=== PATIENT | male | born 1995 | race Caucasian/White ===

== ENCOUNTER 2017-06-19 20:21 | Emergency (ER) | payer SELFPAY ==
--- NOTE | 2017-06-19 20:31 | NUR ---
CALLED PT X3. NO ONE IN WAITING ROOM AT THIS TIME.
--- NOTE | 2017-06-19 20:50 | NUR ---
CALLED PT NAME X3. NO RESPONSE IN WAITING ROOM.
--- NOTE | 2017-06-19 21:00 | NUR ---
CALLED PT NAME X3. PER ADMITTING PT LEFT AND NEVER CAME BACK,.
== END 2017-06-19 21:01 | disposition left against medical advice (07) ==
LOC: ER 20:30
DX: Z53.21 Procedure and treatment not carried out due to patient leaving prior to being seen by health care provider (principal)